=== PATIENT | male | born 1960 | race Caucasian/White ===

== ENCOUNTER 2017-04-14 15:36 | Emergency (ER) | payer OTHER ==
[~2017-04-14] VITALS: Ht 177.8 cm; Wt 79.2 kg
[2017-04-14] MEDS ORDERED: NORCO 5/3251 TABLET PO (18:53)
[2017-04-14] MEDS ORDERED: STOOL SOFTENER250 MG PO (18:53)
[2017-04-14 19:21] VITALS: BP 102/63
[2017-04-22] MEDS ORDERED: ULTRAM50 MG PO (09:36)
== END 2017-04-14 19:27 | disposition home or self-care (01) ==
LOC: EME 15:36
DX: K40.90 Unilateral inguinal hernia, without obstruction or gangrene, not specified as recurrent (principal); F17.200 Nicotine dependence, unspecified, uncomplicated
CPT/HCPCS: 76870; 99281; 99284

== ENCOUNTER → 2017-04-18 | Outpatient (CLI) | payer OTHER ==
[~2017-04-18] MED LIST: NORCO 5/3251 TABLET PO; STOOL SOFTENER250 MG PO; ULTRAM50 MG PO
== END | disposition home or self-care (01) ==
LOC: CDC 12:39
DX: Z01.810 Encounter for preprocedural cardiovascular examination (principal); K40.90 Unilateral inguinal hernia, without obstruction or gangrene, not specified as recurrent
CPT/HCPCS: 93000

== ENCOUNTER 2017-04-24 11:01 | Day surgery (SDC) | payer OTHER ==
[~2017-04-24] VITALS: Ht 177.8 cm; Wt 78.4 kg
[2017-04-24 12:05] LABS: APPEARANCE CLEAR ((CLEAR)); BILIRUBIN NEGATIVE; BLOOD NEGATIVE; COLOR YELLOW ((YELLOW)); GLUCOSE (STRIP) NEGATIVE; KETONES NEGATIVE; LEUKOCYTES NEGATIVE; NITRITE NEGATIVE; PROTEIN (STRIP) NEGATIVE; SPECIFIC GRAVITY 1.009 (1.000-1.030); UCUL ADDED? NO; UROBILINOGEN 0.2 MG/DL (0.2-1.0)
[2017-04-24 12:30] VITALS: BP 119/75
[2017-04-24] MEDS ORDERED: ULTRAM50 MG PO (17:22)
[2017-04-24 18:46] VITALS: BP 140/75
[2017-04-24 19:36] VITALS: BP 136/80
[2017-04-24 20:00] VITALS: BP 122/75
== END 2017-04-24 20:05 | disposition home or self-care (01) ==
LOC: SDC 11:01
PROVIDERS: Surgery
PROC: 0YU50JZ Supplement Right Inguinal Region with Synthetic Substitute, Open Approach (ICD-10-PCS; principal; 2017-04-24)
DX: K40.30 Unilateral inguinal hernia, with obstruction, without gangrene, not specified as recurrent (principal); N43.3 Hydrocele, unspecified; I10 Essential (primary) hypertension; K66.0 Peritoneal adhesions (postprocedural) (postinfection); F17.200 Nicotine dependence, unspecified, uncomplicated
CPT/HCPCS: 81003; 88302; C1781; J0690; J1100; J1170; J1885; J2405; J2795; J3010; J7120

== ENCOUNTER → 2017-05-12 | Outpatient (CLI) | payer OTHER ==
[~2017-05-12] MED LIST changes: +IBUPROFEN600 MG PO
[2017-05-12 08:00] LABS: PTT 29.7 SEC (25-37)
== END | disposition home or self-care (01) ==
LOC: OPR 07:00 → EDSTATUS 07:00 → OPR 07:01
PROVIDERS: Physician Assistant Surgical
PROC: 0Y953ZZ Drainage of Right Inguinal Region, Percutaneous Approach (ICD-10-PCS; principal; 2017-05-12)
DX: M96.842 Postprocedural seroma of a musculoskeletal structure following a musculoskeletal system procedure (principal)
CPT/HCPCS: 77012; 85610; 85730; 87070; 87075; 87205; J3010

== ENCOUNTER 2017-10-24 13:24 | Emergency (ER) | payer OTHER ==
[~2017-10-24] VITALS: Ht 177.8 cm; Wt 74.0 kg
[2017-10-24] MEDS ORDERED: NAPROSYN500 MG PO (15:01)
[2017-10-24] MEDS ORDERED: ULTRAM50 MG PO (15:01)
[2017-10-24 15:22] VITALS: BP 128/80
== END 2017-10-24 15:28 | disposition home or self-care (01) ==
LOC: EME 13:24
DX: S20.212A Contusion of left front wall of thorax, initial encounter (principal); W23.0XXA Caught, crushed, jammed, or pinched between moving objects, initial encounter; F17.200 Nicotine dependence, unspecified, uncomplicated
CPT/HCPCS: 71046; 93005; 99281; 99283

== ENCOUNTER 2017-11-30 17:16 | Emergency (ER) | payer OTHER ==
[~2017-11-30] VITALS: Ht 177.8 cm; Wt 76.8 kg
[~2017-11-30 17:16] MED LIST changes: +NAPROSYN500 MG PO
[2017-11-30] MEDS ORDERED: BACTRIM,SEPT1 TABLET PO (19:10)
[2017-11-30] MEDS ORDERED: KEFLEX500 MG PO (19:10)
[2017-11-30] MEDS ORDERED: NAPROXEN500 MG PO (19:24)
[2017-11-30 19:32] VITALS: BP 127/75
== END 2017-11-30 19:11 | disposition home or self-care (01) ==
LOC: EME 17:16
PROC: 0H9EXZZ Drainage of Left Lower Arm Skin, External Approach (ICD-10-PCS; principal; 2017-11-30)
DX: L02.414 Cutaneous abscess of left upper limb (principal)
CPT/HCPCS: 99281; 99284